=== PATIENT | female | born 1955 | race Caucasian/White ===

== ENCOUNTER 2020-09-19 15:45 | Observation (INO) | payer MEDICARE, OTHER ==
[~2020-09-19] VITALS: Ht 157.5 cm; Wt 66.8 kg
--- NOTE | 2020-09-19 15:48 | NUR ---
PATIENT TO ROOM WITH A STEADY GAIT FOR BEDSIDE TRIAGE.
--- NOTE | 2020-09-19 15:50 | NUR ---
PATIENT NEEDED TO USE BATHROOM BEFORE EKG WAS COMPLETED.
[2020-09-19] MEDS ORDERED: ASPIRIN ADULT L81 M2 PO (16:22)
[2020-09-19] MEDS ORDERED: ATORVASTATIN CA40 MG PO (16:22)
[2020-09-19] MEDS ORDERED: LEVOTHYROXIN50 MCG PO (16:24)
[2020-09-19] MEDS ORDERED: LEVOTHYROXIN75 MCG PO (16:24)
[2020-09-19] MEDS ORDERED: ADVAIR DISK1 IN (16:25)
[2020-09-19] MEDS ORDERED: PROAIR HFA108 MCG/AC IN (16:29)
--- NOTE | 2020-09-19 16:30 | NUR ---
PT STATES THAT SHE WAS REFERRED HERE BY PRIMARY CARE DOCTOR AFTER SHE MENTIONED ABOUT HAVING LEFT RIB PAIN. PT DENIES IT RADIATING ANYWHERE. AOX4. DENIES ANY OTHER S/S. WILL CONTINUE TO MONITOR.
[2020-09-19 16:40] LABS: HEMATOCRIT 41.8 % (37.0-47.0); HEMOGLOBIN 13.2 g/dl (12.0-16.0); IMMATURE GRANULOCYTES 0.1 % (0.0-5.0); MEAN CELL VOLUME 94.8 fL CALC (80.0-100.0); MEAN CORPUSCULAR HGB 29.9 pG CALC (26.0-32.0); MEAN CORPUSCULAR HGB CONC 31.6 g/dL CAL (32.0-36.0); NEUT# 4.69 thou/uL (2.00-7.15); RED BLOOD COUNT 4.41 mill/uL (4.20-5.60); RED CELL DISTRI WIDTH 13.2 % (11.5-15.5)
[2020-09-19 16:58] LABS: ANION GAP 12 (6-22 (CALC)); BUN 9 mg/dL (8-23); BUN/CREATININE RATIO 12 (12-20 (CALC)); CARBON DIOXIDE 25 mmol/l (22-30); CHLORIDE 104 mmol/l (95-108); CREATININE 0.8 mg/dL (0.5-1.0); GFR > 60 ML/MIN (>=60 (CALC)); GFR FOR AFR.AMER. > 60 ML/MIN (>=60 (CALC)); POTASSIUM 3.7 mmol/l (3.5-5.1); SODIUM 138 mmol/l (137-146)
--- NOTE | 2020-09-19 17:30 | NUR ---
REASSESSED PT AFTER ASPIRIN ADMIN AND SHE STATES THAT PAIN HAS RELIEVED TO ABOUT A 2/10. PT IS SITTING ON THE SIDE OF THE BED WATCHING TV. CALL LIGHT WITHIN REACH
--- NOTE | 2020-09-19 18:30 | NUR ---
PLAN OF CARE DISCUSSED AND QUESTIONS ANSWERED. PT DENIES ANY NEEDS.
--- NOTE | 2020-09-19 18:55 | NUR ---
GAVE REPORT TO KEYONNA
--- NOTE | 2020-09-19 20:25 | NUR ---
PT SITTING ON EDGE OF BED. NO C/O AT PRESENT. VSS. ADVISED OF BED READY.
--- NOTE | 2020-09-19 20:34 | NUR ---
ATTEMPTED TO CALL REPORT. NURSE WILL CALL BACK.
--- NOTE | 2020-09-19 21:04 | NUR ---
RECEIVED REPORT FROM ANDREA NEWBY. PT ARRIVED TO UNIT @ 2114. ASSUMED CARE OF PT, VS OBTAINED, ASSESSMENT & ADMISSION COMPLETED. PATIENT ORIENTED TO ROOM, BED, AND CALL LIGHT SYSTEM. ALL SAFETY & PRECAUTIONS IN PLACE.
--- NOTE | 2020-09-19 21:05 | NUR ---
REPORT TO RORO/NURSE/MED-SURG
--- NOTE | 2020-09-19 21:10 | NUR ---
PT TO FLOOR VIA W/C. POCKET MONITOR. [id number].
[2020-09-19 21:15] VITALS: BP 145/77
--- NOTE | 2020-09-19 21:26 | NUR ---
DR GORDON NOTIIFIED OF PT TAKING HER 75MCG DOSE OF SYNTHROID THIS AM....AND SHOULD GET 50 MCG TOMORROW. SOME HOW IN THE MAR FOR 1830. STATES TO NOT GIVE SYNTHROID TONIGHT AND THEY WILL HANDLE IT TOMORROW.
[2020-09-19 23:53] VITALS: BP 124/71
--- NOTE | 2020-09-20 | NUR ---
PATIENT LAYING IN BED, AWAKE AND WATCHING TV. NO NEEDS OR CONCERN EXPRESSED AT THIS TIME, CALL LIGHT WITHIN REACH, WILL CONITINUE TO MONITOR FOR COMFORT AND SAFETY.
[2020-09-20 04:37] VITALS: BP 133/69
--- NOTE | 2020-09-20 07:35 | NUR ---
ASSESSMENT IS COMPLETD: IV SITE IS FREE FROM REDNESS OR EDEMA. HR IS REG,PULSES ARE STRONG X4, ABD IS SOFT WITH ACTIVE BS. BREATH SOUNDS ARE CLEAR,BILATERALLY. NO C/O PAIN ON THE RIB THIS AM. TELE MONITOR IN PLACE
[2020-09-20 10:30] VITALS: BP 106/68
--- NOTE | 2020-09-20 11:00 | NUR ---
IV SITE DISCONITNUED CATHETER INTACT. NO REDNESS OR EDEMA. DISCHARGE INSTRUCTIONS GIVEN AND VERBALIZED UNDERSTANDING. SPOUSE IN THE ER WAITING AREA TO TAKE HER HOME. Discharge instructions given. Patient verbalizes understanding of same. Discharged in stable condition via Wheelchair to Home with family. All belongings sent with pt.
== END 2020-09-20 11:14 | disposition home or self-care (01) ==
LOC: ED 15:45 → ED-I 17:30 → ED 17:40 → MS2 17:41
PROVIDERS: Family Medicine; ADMIT Internal Medicine; ATTEND Internal Medicine
DX: R07.1 Chest pain on breathing (principal); J44.9 Chronic obstructive pulmonary disease, unspecified; E78.5 Hyperlipidemia, unspecified; E03.9 Hypothyroidism, unspecified; Z20.822 Contact with and (suspected) exposure to COVID-19
CPT/HCPCS: J1650